=== PATIENT | male | born 1940 | race African-American/Black ===

== ENCOUNTER 2020-06-07 18:00 | Emergency (ER) | payer OTHER ==
[~2020-06-07] VITALS: Ht 190.5 cm; Wt 95.3 kg
[2020-06-07] MEDS ORDERED: HYDR25TA4 PO (18:28)
[2020-06-07] MEDS ORDERED: SIMV-46 PO (18:28)
[2020-06-07] MEDS ORDERED: OXYB10TA30 PO (18:28)
[2020-06-07] MEDS ORDERED: ASPI81TA31 PO (18:28)
[2020-06-07] MEDS ORDERED: AMLO-212 PO (18:28)
[2020-06-07] MEDS ORDERED: INSU100I35 SQ (18:28)
[2020-06-07] MEDS ORDERED: BENA20TA9 PO (18:28)
[2020-06-07] MEDS ORDERED: GABA-532 PO (18:28)
[2020-06-07] MEDS ORDERED: ANAS1TAB50 PO (18:28)
[2020-06-07] MEDS ORDERED: FURO20TA4 PO (18:28)
[2020-06-07] MEDS ORDERED: SULFAMETH/TRIMETH 800/160 MG TABLET PO ONE (18:45)
[2020-06-07] MEDS ORDERED: CEFTRIAXONE 1 G VIAL IM ONE (18:45)
[2020-06-07] MEDS ORDERED: CEPH500C2 PO (19:07)
[2020-06-07] MEDS ORDERED: SULF1TAB48 PO (19:07)
[2020-06-07 20:10] VITALS: BP 118/60
== END 2020-06-07 20:10 | disposition home or self-care (01) ==
LOC: ER 18:04
DX: M25.471 Effusion, right ankle (principal); E11.621 Type 2 diabetes mellitus with foot ulcer; L97.511 Non-pressure chronic ulcer of other part of right foot limited to breakdown of skin; Z79.4 Long term (current) use of insulin; H54.61 Unqualified visual loss, right eye, normal vision left eye
CPT/HCPCS: 82962; 93971; 96372; 99284; J0696; A4663